=== PATIENT | female | born 1990 | race Caucasian/White ===

== ENCOUNTER 2021-12-30 10:25 | Day surgery (SDC) | payer OTHER ==
[~2021-12-30] VITALS: Ht 147.3 cm; Wt 42.2 kg
[2021-12-30] MEDS ORDERED: fentaNYL citrate 0.05 MG/ML VIAL ONE (11:14)
[2021-12-30] MEDS ORDERED: diphenhydrAMINE 50 MG/ML VIAL ONE (11:14)
[2021-12-30] MEDS ORDERED: MIDAZOLAM 5 MG/5 ML VIAL ONE (11:14)
[2021-12-30] MEDS ORDERED: LIDOCAINE 2% 100 MG/5 ML UJET TP ONE (11:14)
[2021-12-30] MEDS ORDERED: MIDAZOLAM 2 MG/2 ML VIAL ONE (12:00)
[2021-12-31] MEDS ORDERED: MIDAZOLAM 2 MG/2 ML VIAL IV ONE (13:35)
[2021-12-31] MEDS ORDERED: fentaNYL citrate 0.05 MG/ML VIAL IVP ONE (13:35)
== END 2021-12-30 13:25 | disposition home or self-care (01) ==
LOC: MDS 10:25 → MMU 10:25 → MDS 13:25
PROVIDERS: ATTEND Internal Medicine Gastroenterology
DX: R10.9 Unspecified abdominal pain (principal); K50.819 Crohn's disease of both small and large intestine with unspecified complications; T80.92XA Unspecified transfusion reaction, initial encounter; E28.2 Polycystic ovarian syndrome; K52.9 Noninfective gastroenteritis and colitis, unspecified; J45.909 Unspecified asthma, uncomplicated; F32.9 Major depressive disorder, single episode, unspecified; F17.210 Nicotine dependence, cigarettes, uncomplicated; Z88.6 Allergy status to analgesic agent; Z79.899 Other long term (current) drug therapy; Z92.25 Personal history of immunosuppression therapy; Z98.890 Other specified postprocedural states; Z20.822 Contact with and (suspected) exposure to COVID-19
CPT/HCPCS: 43239; 45380; 81025; 87426; 88305; 88312; 88313; 88342; J1200; J2250; J3010